=== PATIENT | male | born 1970 | race Caucasian/White ===

== ENCOUNTER → 2018-11-21 | Outpatient (CLI) | payer BC ==
[~2018-11-21] MED LIST: DIA5 PO; IBU800 PO; LOR5 PO; MAX; MET800 PO; METH100V6 IJ; METH4TAB57 PO; METHO500 PO; MOTRIN; NO ROUTINE MEDS; PER PO; ZOLP-350 PO; [UNRECOGNIZED DRUG - CODE]
[2018-11-21 10:00] LABS: PLATELET COUNT, AUTOMATED 171 K/uL (150-450)
--- NOTE | 2018-11-21 11:44 | EKG ---
FACILITY: [facility] PATIENT NAME: JOHNATHAN CARRION : [id number] MR: [id number] V: [id number] EXAM DATE: ORDERING PHYSICIAN: HANNAH GAMBOA TECHNOLOGIST: SHAILA Adams Reason : PRE-OP Blood Pressure : / mmHG Vent. Rate : 077 BPM Atrial Rate : 077 BPM P-R Int : 166 ms QRS Dur : 112 ms QT Int : 408 ms P-R-T Axes : 034 094 012 degrees QTc Int : 461 ms Normal sinus rhythm No ST-T abnormalities No previous ECGs available Confirmed by BIANCA CRYSTAL ([id number]) on 11/22/2018 12:08:37 AM Referred By: Confirmed By:BIANCA CRYSTAL
== END ==
LOC: LAB 09:34
PROVIDERS: ATTEND Orthopaedic Surgery
DX: Z01.812 Encounter for preprocedural laboratory examination (principal); Z01.810 Encounter for preprocedural cardiovascular examination; M17.12 Unilateral primary osteoarthritis, left knee; Z68.41 Body mass index [BMI] 40.0-44.9, adult
CPT/HCPCS: 36415; 81001; 82040; 82247; 82310; 82374; 82435; 82565; 82947; 84075; 84132; 84155; 84295; 84450; 84460; 84520; 85025; 93005

== ENCOUNTER 2018-12-04 13:30 | Inpatient (IN) | payer BC ==
[2018-12-03 15:50] LABS: INR 0.92
[2018-12-04] VITALS (10 sets, daily range): BP systolic 108–158; BP diastolic 70–107
[~2018-12-04] VITALS: Ht 182.9 cm; Wt 140.2 kg
[~2018-12-04 13:30] MED LIST changes: +ACETAMINOPHEN 500 MG TAB PO ONE; +CELECOXIB 200 MG CAP PO ONE; +DEXAMETHASONE SOD PHOS 10MG/ML ONE; +FAMOTIDINE 20 MG TAB PO ONE; +HYDROmorphone HCL 2 MG/ML SDV ONE; +LIDOCAINE/SOD BICARB 8.4% SYR ID ONE; +MIDAZOLAM 2 MG/2 ML VIAL IVP PRN; +NORMOSOL R SOLN(*) 1000 ML BAG 1,000 ML IV PRN; +PREGABALIN 150 MG CAPSULE PO ONE; +PROPOFOL EMUL 10MG/ML 20 ML VL ONE; +ROPIVACAINE 0.2% 400 MG/200ML 250 ML CONINFUS ONE; +ROPIVACAINE/EPI/CLONIDINE/KET 50 ML SYRINGE INJ ONE; +TRANEXAMIC AC 1000 MG/10ML SDV 1,000 MG in DEXTROSE 5% 50 ML BAG 50 ML IV ONE; +ceFAZolin(*) 1 GM VIAL 3 GM in NS(*) 0.9% 100 ML BAG 100 ML IVPB ONE; +fentaNYL CITR 100 MCG/2 ML AMP ONE
[2018-12-04] MEDS ORDERED: LABETALOL HCL 25 MG/5 ML SYRINGE ONE (14:46)
[2018-12-04] MEDS ORDERED: fentaNYL CITR 100 MCG/2 ML AMP ONE (15:14)
[2018-12-04] MEDS ORDERED: MAGNESIUM HYDROXIDE* 30ML UDCP PO PRN (15:20)
[2018-12-04] MEDS ORDERED: PROMETHAZINE 25 MG/ML 1 ML AMP IVP PRN (15:20)
[2018-12-04] MEDS ORDERED: ONDANSETRON 4 MG/2 ML VIAL IVP PRN (15:20)
[2018-12-04] MEDS ORDERED: NORMOSOL R SOLN(*) 1000 ML BAG 1,000 ML IV PRN (15:20)
[2018-12-04] MEDS ORDERED: BISACODYL 10 MG SUPP PR PRN (15:20)
[2018-12-04] MEDS ORDERED: ZOLPIDEM TARTRATE 5 MG TAB PO PRN (15:20)
[2018-12-04] MEDS ORDERED: FLUSH 10 ML SYR IVP PRN (15:20)
[2018-12-04] MEDS ORDERED: MORPHINE 4 MG/ML SDV IVP PRN (15:20)
[2018-12-04] MEDS ORDERED: LACTATED RINGER 3000 ML BAG IR ONE (15:24)
[2018-12-04] MEDS ORDERED: NS 0.9% IRRIGATION 1000ML PLCT IR ONE (15:24)
--- NOTE | 2018-12-04 16:31 | RADIOLOGY IMAGING REPORT ---
FACILITY: [facility] PATIENT NAME: Fitz Kim : 1970 MR: [id number] V: [id number] EXAM DATE: ORDERING PHYSICIAN: HANNAH GAMBOA TECHNOLOGIST: Location: [facility] [place] Patient: Fitz Kim : 1970 Visit/Account:[id number] Date of Sevice: 12/04/2018 KNEE LIMITED LEFT Indication: Postop TKA Comparison: None available Findings: There are posterior changes from three part TKA. Components are well seated and in neutral alignment . No abnormalities are noted. On lateral view, screw from prior ACL repair is noted within the distal femur IMPRESSION: 1. Normal postoperative appearance of left TKA Report Dictated By: Jonathan Rob at 12/04/2018 4:21 PM Report E-Signed By: Jonathan Rob at 12/04/2018 4:26 PM WSN:[id number]
[2018-12-04] MEDS: ACETAMINOPHEN 500 MG TAB PO SCH (17:11)
[2018-12-04] MEDS: KETOROLAC TROM 10MG TAB PO PRN (17:12)
--- NOTE | 2018-12-04 17:34 | OPERATIVE REPORT 1 ---
EVENT DATE: December 04, 2018 SURGEON: Jameson Jamison MD ANESTHESIOLOGIST: Cristopher Arredondo MD ANESTHESIA: Left indwelling adductor block followed by general anesthesia. We also utilized 50 cc of our standard Toradol/ropivacaine cocktail. SUPERVISOR FELTING: SRIKANTH Cesar, ASSOCIATE PREOPERATIVE DIAGNOSIS Left knee degenerative joint disease with mild flexion contraction and valgus alignment. POSTOPERATIVE DIAGNOSIS Left knee degenerative joint disease with mild flexion contraction and valgus alignment. PROCEDURE PERFORMED Left total knee arthroplasty. IMPLANTS MicroPort medial pivot CS system with a 6 femur, 6+ tibia, 10 mm CS insert, 8 x 35 symmetric patella, femur cut 6 degrees valgus, 10 mm. We also utilized two packages of [employer] [place] Blue cement and ZipLine Wound Closure System. SPECIMENS None. COMPLICATIONS None. BLOOD LOSS Less than 200 cc. OPERATION The patient was brought to the OR after receiving appropriate antibiotic and Dr. Arredondo performed left adductor canal block followed by general anesthesia. Left thigh tourniquet was placed but was not utilized. Left lower extremity prepped and draped in the usual sterile fashion. Midline incision was made followed by a medial parapatellar arthrotomy with sharp dissection carried out subperiosteally to the level of the semimembranosus insertion. From the previous procedure, there was a lot of scarring medially and post patellar region. Fat pad was excised. Patella released and everted. Noted significant osteophytes in the notch. Absent reconstructed ACL. Eburnation was noted in the lateral compartment, particularly posteriorly. The knee was hyperflexed and the notch removed with osteophytes. PCL released subperiosteally by Bovie. The remaining articular cartilage of the medial femoral condyle was removed by sagittal saw. Step-cut drill was utilized to broach the canal. Intramedullary distal femoral cutting guide was placed on the femur. Cutting block pinned into place with 10 mm, 6 degrees valgus. Distal cut was made with care taken to protect the soft tissues. 3-degree external rotation guide was then positioned, referencing of the anterior flange, epicondyles and posterior condyles. Femur was sized to a #6. Four-in-one cutting block was positioned followed by Z- retractor to protect the soft tissues and four cuts were made. The tibia was brought anterior in the femur. Appropriate retractors, step-cut drill utilized to broach the tibial canal and we placed our intramedullary tibial guide. We referenced 10 mm off the high side of the anterior portion of the lateral tibial plateau, which we anticipated would just cut underneath the eburnated posterior lateral corner. We referenced for rotation, pinned the block into place. We made our cuts. We noted that we had to cut around the screw on the tibial side. We were able to remove bone and then remove the screw by drawing it into the joint. We then refined our cut and sized the femur to a 6+. Stump of the PCL, medial and lateral meniscus removed by Bovie. We noticed significant scarring posterior laterally and we released the IT band. We placed our tibial baseplate, 10 mm insert and #6 femur. We were able to get full extension and stability to varus/valgus stress and satisfactory anterior drawer. Knee was brought into full extension. Patella was measured to 27 mm. This was cut down 8 mm utilizing the guide and this accepted a peg hole guide, 35 x 8, and this was placed inferiorly to medially and peg holes were drilled. We placed our patella, flexed the knee, drilled for peg holes, placed these and cut for trochlea chip, which was then placed. Again, we had full extension. Flexion limited by body habitus to about 130 degrees and stability varus/valgus stress. Patella tracked well. Good endpoint and anterior drawer. Knee was brought into flexion. Patella, femur, tibial insert were removed. Appropriate retractors were placed to expose the tibia and we placed our tower in the cut and reamed and punched for keel. Instrumentation was removed. Bone plug placed in the distal femur. We copiously irrigated by pulse lavage while we mixed two packages of [employer] [place] blue cement and injected 10 cc of our cocktail into the posterior capsule. We then brought the knee up in appropriate position and cemented the 6+ baseplate, followed by out 10 mm CS insert and #6 femur. Excess cement was removed. Knee was brought in full extension with axial compression while we cemented the patella. It took 14 minutes for the cement to cure. Again, we had the aforementioned range of motion and stability. While awaiting for the cement to cure, we injected the 40 cc of our remaining cocktail in the distal quad mechanism and we copiously irrigated. Again, we had the aforementioned range of motion and stability. We placed the knee at 30 degrees, closed the arthrotomy with #2 Vicryl followed by 2-0 Vicryl for the subcutaneous tissue and at 45 degrees, ZipLine Wound Closure of the skin. Patient was extubated and taken to recovery in stable condition. Hospitalist team will be consulted for medical management and anticoagulation, PT for rehab. JATIN
--- NOTE | 2018-12-04 19:09 | Hospitalist Progress Note ---
Subjective Progress Notes Subjective No cp/sob. 2000cc of crystalloid, dexamethasone and TXA given intra-op. Physical Exam Vital Signs Date Time Temp Pulse Resp B/P (MAP) Pulse Ox O2 Delivery O2 Flow Rate FiO2 12/04/18 16:45 83 12 94 12/04/18 16:10 50.0 12/04/18 10:40 97.3 158/107 (124) Room Air General Appearance: Alert, Awake, No Acute Distress Cardiovascular: Regular Rate and Rhythm Respiratory: Clear to Auscultation Extremities: No Edema Integumentary: No Jaundice, No Cyanosis Assessment and Plan Problems: (1) Status post knee replacement Status: Acute Assessment & Plan: No CV/pulmonary issues. He denies any h/o DVT/PE. He will be on ASA 325mg a day for 30 days for VTE prophylaxis. (2) Severe obesity (BMI >= 40) Status: Chronic Problem Qualifiers (1) Status post knee replacement: Laterality: left Qualified Codes: Z96.652 - Presence of left artificial knee joint BIANCA CRYSTAL MD December 04, 2018 19:09
[2018-12-04] MEDS: ceFAZolin(*) 2GM/D5W 50ML 50 ML IVPB SCH (20:38)
[2018-12-05] MEDS: ACETAMINOPHEN 500 MG TAB PO SCH ×3 (00:46→17:29)
[2018-12-05 03:53] VITALS: BP 104/81
[2018-12-05] MEDS: ceFAZolin(*) 2GM/D5W 50ML 50 ML IVPB SCH ×2 (04:36→12:09)
[2018-12-05 07:48] VITALS: BP 110/80
[2018-12-05] MEDS: traMADol 50 MG TAB PO PRN ×2 (08:29→15:03)
[2018-12-05] MEDS: ASPIRIN 325 MG ENTERIC COATED PO SCH (08:54)
--- NOTE | 2018-12-05 09:29 | NUR ---
Physical Therapy Impression PT eval completed followed by ambulation in hallway with FWW and CGA. Pt tolerated gait x 150' and is CGA for bed mobility as well. Pt instructed in CPM use to increase flexion as tolerated and demos 60 degrees flexion while seated on toilet with near full extension while resting with knee flat on bed with quad set. PT did require O2 at 3 L/min during therapy to maintain sats >90%. Physical Therapy Goals 1. Pt to be modified indep for sup<>sit trnsfrs and bed mobility 2. Pt to be modified indep for sit to/from stand transfers 3. Pt to be modified indep for ambulation x 150' with FWW 4. Pt to jorge up/down platform step x 1 with mod Indep and FWW, to simulate curb in environment. Patient's Goals
--- NOTE | 2018-12-05 10:09 | Hospitalist Progress Note ---
Subjective Progress Notes Subjective He was admitted s/p knee replacement. He had no acute events overnight. Patient Complains of: Cardiovascular: No: Chest Pain Respiratory: No: Shortness of Breath Physical Exam Vital Signs Date Time Temp Pulse Resp B/P (MAP) Pulse Ox O2 Delivery O2 Flow Rate FiO2 12/05/18 07:48 98.5 77 20 110/80 (90) 94 Nasal Cannula 3.0 12/05/18 00:30 40.0 Intake and Output 12/05/18 00:59 Intake Total 2140 ml Balance 2140 ml Intake Oral 240 ml IV Total 1900 ml General Appearance: Alert, Awake, No Acute Distress, Afebrile Neuro: No Gross deficits Cardiovascular: Regular Rate and Rhythm Respiratory: No Respiratory Distress, Clear to Auscultation GI: Soft and Non-Tender Psych: Alert & Oriented X3, Appropriate Mood & Affect Assessment and Plan Problems: (1) Status post knee replacement Status: Acute Assessment & Plan: No CV/pulmonary issues. He denies any h/o DVT/PE. He will be on ASA 325mg a day for 30 days for VTE prophylaxis. (2) Severe obesity (BMI >= 40) Status: Chronic Exam Sepsis Risk: No Definite Risk Problem Qualifiers (1) Status post knee replacement: Laterality: left Qualified Codes: Z96.652 - Presence of left artificial knee joint DIDIER SALMON December 05, 2018 10:09
[2018-12-05] MEDS: KETOROLAC TROM 10MG TAB PO PRN ×2 (11:48→18:43)
[2018-12-05 11:49] VITALS: BP 121/78
[2018-12-05 15:01] VITALS: BP_SYST 121; BP_SYST 123; BP_DIAS 60; BP_DIAS 78
--- NOTE | 2018-12-05 17:05 | NUR ---
Physical Therapy Impression PT completed distance ambulation goal and tolerated up/down platform step with SBA/Modified indep and FWW. Pt encouraged to increase flexion with CPM as tolerated today. Physical Therapy Goals 1. Pt to be modified indep for sup<>sit trnsfrs and bed mobility 2. Pt to be modified indep for sit to/from stand transfers 3. Pt to be modified indep for ambulation x 150' with FWW 4. Pt to jorge up/down platform step x 1 with mod Indep and FWW, to simulate curb in environment. Patient's Goals
[2018-12-05 18:55] VITALS: BP 105/53
[2018-12-05 22:33] VITALS: BP 108/61
[2018-12-06] MEDS: ACETAMINOPHEN 500 MG TAB PO SCH ×2 (01:00→08:19)
[2018-12-06] MEDS: traMADol 50 MG TAB PO PRN ×2 (01:44→08:19)
[2018-12-06] MEDS: oxyCODONE HCL 5 MG CAP PO PRN ×2 (02:44→13:52)
[2018-12-06 05:47] VITALS: BP 119/75
[2018-12-06] MEDS: KETOROLAC TROM 10MG TAB PO PRN ×2 (05:57→15:32)
[2018-12-06 07:32] VITALS: BP 117/85
[2018-12-06] MEDS ORDERED: KET10 PO (07:41)
[2018-12-06] MEDS ORDERED: TRAM-420 PO (07:44)
[2018-12-06] MEDS ORDERED: OXYC5CAP21 PO (07:52)
[2018-12-06] MEDS: ASPIRIN 325 MG ENTERIC COATED PO SCH (08:19)
[2018-12-06] MEDS ORDERED: DOCUSATE SODIUM 100 MG CAP PO SCH (09:00)
[2018-12-06] MEDS ORDERED: DOCU-202 PO (09:56)
[2018-12-06] MEDS ORDERED: ASPI-764 PO (09:56)
--- NOTE | 2018-12-06 10:05 | Hospitalist Progress Note ---
Subjective Progress Notes Subjective He was admitted s/p knee replacement. He request a rx for Colace to go home with today, otherwise he has no complaints. Patient Complains of: Cardiovascular: No: Chest Pain Respiratory: No: Shortness of Breath Physical Exam Vital Signs Date Time Temp Pulse Resp B/P (MAP) Pulse Ox O2 Delivery O2 Flow Rate FiO2 12/06/18 07:32 98.8 88 16 117/85 (96) 96 Nasal Cannula 4.0 12/05/18 00:30 40.0 Intake and Output 12/06/18 01:00 Intake Total 2010 ml Output Total 1725 ml Balance 285 ml Intake Oral 1960 ml IV Total 50 ml Output Urine Total 1725 ml # Voids 1 General Appearance: Alert, Awake, No Acute Distress, Afebrile Neuro: No Gross deficits Cardiovascular: Regular Rate and Rhythm Respiratory: No Respiratory Distress, Clear to Auscultation Psych: Alert & Oriented X3, Appropriate Mood & Affect Assessment and Plan Problems: (1) Status post knee replacement Status: Acute Assessment & Plan: No CV/pulmonary issues. He denies any h/o DVT/PE. He will be on ASA 325mg a day for 30 days for VTE prophylaxis. Will write script for colace. (2) Severe obesity (BMI >= 40) Status: Chronic (3) Acute respiratory insufficiency, postoperative Status: Acute Assessment & Plan: He will be sent home with home oxygen. He will follow up next week with his PCP. Exam Sepsis Risk: No Definite Risk Problem Qualifiers (1) Status post knee replacement: Laterality: left Qualified Codes: Z96.652 - Presence of left artificial knee joint DIDIER SALMONP December 06, 2018 10:05
--- NOTE | 2018-12-06 11:10 | NUR ---
Physical Therapy Impression PT goals met and from a mobility stand point pt is safe to d/c home when medically appropriate. Pt notes that he feels confident with mobility skills and is getting ready to shower prior to d/c. Pt declines further rehab at this time and is set up for out pt therapy. PT goals met with platform step yesterday afternoon and pt indicates that pain has remained well managed. Physical Therapy Goals 1. Pt to be modified indep for sup<>sit trnsfrs and bed mobility 2. Pt to be modified indep for sit to/from stand transfers 3. Pt to be modified indep for ambulation x 150' with FWW 4. Pt to jorge up/down platform step x 1 with mod Indep and FWW, to simulate curb in environment. Patient's Goals
[2018-12-06 12:10] VITALS: BP 130/82
[2018-12-06 15:07] VITALS: BP 123/69
--- NOTE | 2018-12-06 15:10 | NUR ---
D/C'd pt's AMBU pump at 1510 w/ aseptic technique. skin intact, bandaid applied.
== END 2018-12-06 16:00 | disposition home or self-care (01) | DRG 470 ==
LOC: OR 13:30 → OBSVTOIN 16:45 → INTOOBSV 16:45 → MED 16:45
PROVIDERS: ADMIT Orthopaedic Surgery; ATTEND Orthopaedic Surgery
PROC: 0SRD0J9 Replacement of Left Knee Joint with Synthetic Substitute, Cemented, Open Approach (ICD-10-PCS; principal; 2018-12-04 12:32)
DX: M17.12 Unilateral primary osteoarthritis, left knee (principal); Z68.41 Body mass index [BMI] 40.0-44.9, adult; E66.9 Obesity, unspecified; R06.89 Other abnormalities of breathing; F17.220 Nicotine dependence, chewing tobacco, uncomplicated
CPT/HCPCS: 36415; 76942; 85610; 86850; 86900; 86901; 94660; 97161; C1713; C1776; J0690; J1100; J1170; J2250; J2704; J2795; J3010; J7050; J7060